=== PATIENT | female | born 1960 | race Caucasian/White ===

== ENCOUNTER 2019-04-01 14:04 | Emergency (ER) | payer BC, MEDICAID ==
[~2019-04-01] VITALS: Ht 149.9 cm; Wt 72.6 kg
--- NOTE | 2019-04-01 14:08 | NUR ---
Pt placed in bed 7
[2019-04-01 14:11] VITALS: BP_SYST 153
--- NOTE | 2019-04-01 14:13 | NUR ---
FAISAL Infante at bedside examining patient.
[2019-04-01] MEDS: cloNIDine HCL 0.1 MG TABLET PO ONE (14:31)
--- NOTE | 2019-04-01 14:33 | NUR ---
Medication for hypertension was given to pt, tolerated well
--- NOTE | 2019-04-01 14:53 | NUR ---
Patient given written and verbal discharge instructions and verbalizes understanding. ER MD discussed with patient the results and treatment provided. Patient in stable condition. ID arm band removed. Rx of valtrex, norco, prednisone and HCTZ given. Patient educated on pain management and to follow up with PMD. Pain Scale 3. Opportunity for questions provided and answered. Medication side effect fact sheet provided.
[2019-04-01 14:55] VITALS: BP_SYST 150
== END 2019-04-01 14:53 | disposition home or self-care (01) ==
LOC: SED 14:04
DX: B02.9 Zoster without complications (principal); I10 Essential (primary) hypertension; F32.9 Major depressive disorder, single episode, unspecified; Z90.49 Acquired absence of other specified parts of digestive tract; Z90.710 Acquired absence of both cervix and uterus
CPT/HCPCS: 99283

== ENCOUNTER 2021-05-30 09:47 | Emergency (ER) | payer MEDICAID ==
[~2021-05-30] VITALS: Ht 149.9 cm; Wt 68.0 kg
--- NOTE | 2021-05-30 10:00 | NUR ---
Patient to ER bed 4 to gown for evaluation. Side rails up. Report given to JOSE ARMANDO Cordon.
--- NOTE | 2021-05-30 10:05 | NUR ---
Pt AAO and ambulatory reporting ringing in the ears since Friday and numb lip. Pt reports that it will not resolve by itself. Pt denies any pain currently. Pt has no history of stroke/CVA.
[2021-05-30 10:10] VITALS: BP_SYST 179
--- NOTE | 2021-05-30 10:15 | NUR ---
Dr. Reyes to bedside to assess.
--- NOTE | 2021-05-30 10:20 | NUR ---
EKG done. Results to Dr. Reyes for interpretation.
--- NOTE | 2021-05-30 10:25 | NUR ---
Portable X-ray done at bedside.
--- NOTE | 2021-05-30 10:43 | NUR ---
Lab at bedside for blood draw.
--- NOTE | 2021-05-30 11:15 | NUR ---
Pt resting quietly in no distress awaiting disposition.
[2021-05-30 11:16] LABS: BASOPHILS % (AUTO) 0.5 % (0.0-2.0); EOSINOPHILS # (AUTO) 0.1 K/uL (0.0-0.4); EOSINOPHILS % (AUTO) 1.5 % (0.0-4.0); HEMATOCRIT 38.7 % (36-48); HEMOGLOBIN 13.4 g/dL (12.0-16.0); LYMPHOCYTES # (AUTO) 1.5 K/uL (1.0-5.5); MEAN CORPUSCULAR HEMOGLOBIN 30 pg (27-31); MEAN CORPUSCULAR HGB CONC 35 % (32-36); MEAN CORPUSCULAR VOLUME 85 fL (79.0-98.0); MONOCYTES # (AUTO) 0.4 K/uL (0.0-1.0); MONOCYTES % (AUTO) 5.5 % (1.7-9.3); NEUTROPHILS % (AUTO) 71.5 % (40.0-70.0); PLATELET COUNT (AUTO) 349 K/uL (130-430); RED BLOOD CELL COUNT(AUTO) 4.53 MIL/uL (4.2-6.2); RED CELL DISTRIBUTION WIDTH 12.5 % (9.0-15.0)
[2021-05-30 11:21] LABS: CALCIUM 9.6 mg/dL (8.4-11.0); CREATININE 0.65 mg/dL (0.55-1.30); POTASSIUM 3.7 mmol/L (3.5-5.1)
[2021-05-30 11:23] LABS: PROTHROMBIN TIME 10.1 SECS (9.5-12.5)
[2021-05-30 11:29] LABS: ALBUMIN 3.5 g/dL (3.4-4.8); TOTAL BILIRUBIN 0.2 mg/dL (0.0-1.0)
[2021-05-30] MEDS ORDERED: ALPR0.5T PO (11:52)
[2021-05-30] MEDS ORDERED: ALPRAZolam 0.25 MG TABLET PO ONE (12:00)
[2021-05-30 12:05] VITALS: BP_SYST 160
--- NOTE | 2021-05-30 12:05 | NUR ---
Patient given written and verbal discharge instructions and verbalizes understanding. Dr. Eric MALONE MD discussed with patient the results and treatment provided. Patient in stable condition. ID arm band removed. Rx of Xanax given. Patient educated on pain management and to follow up with PMD. Pain Scale 0/10. Opportunity for questions provided and answered. Medication side effect fact sheet provided.
== END 2021-05-30 10:43 | disposition home or self-care (01) ==
LOC: SED 09:47
DX: H93.19 Tinnitus, unspecified ear (principal); F32.9 Major depressive disorder, single episode, unspecified; Z79.899 Other long term (current) drug therapy
CPT/HCPCS: 36415; 70450-TC; 71045; 76376; 80053; 84484; 85025; 85610-TC; 85730-TC; 93005; 99285

== ENCOUNTER 2022-02-14 09:57 | Emergency (ER) | payer MEDICAID ==
[~2022-02-14] VITALS: Ht 149.9 cm; Wt 72.6 kg
[~2022-02-14 09:57] MED LIST: ALPR0.5T PO
[2022-02-14 10:00] VITALS: BP_SYST 147
[2022-02-14] MEDS ORDERED: ACETAMINOPHEN 500 MG TABLET PO ONE (13:00)
[2022-02-14 13:31] LABS: BILIRUBIN,URINE NEGATIVE (NEGATIVE); BLOOD, URINE NEGATIVE (NEGATIVE); COLOR,URINE YELLOW (YELLOW); GLUCOSE,URINE NEGATIVE (NEGATIVE); KETONES,URINE NEGATIVE (NEGATIVE); LEUKOCYTE ESTERASE ,URINE 3+ (NEGATIVE); NITRITE, URINE NEGATIVE (NEGATIVE); PH,URINE 5.5 (5.0-8.0); PROTEIN URINE NEGATIVE (NEGATIVE); UROBILINOGEN,URINE 0.2 (0.2-1.0)
[2022-02-14 13:32] LABS: CLARITY/URINE HAZY (CLEAR)
[2022-02-14 13:55] LABS: BASOPHILS % (AUTO) 0.6 % (0.0-2.0); EOSINOPHILS # (AUTO) 0.1 K/uL (0.0-0.4); EOSINOPHILS % (AUTO) 1.7 % (0.0-4.0); HEMATOCRIT 39.3 % (36-48); HEMOGLOBIN 13.7 g/dL (12.0-16.0); LYMPHOCYTES % (AUTO) 23.8 % (20.5-51.5); MEAN CORPUSCULAR HEMOGLOBIN 29 pg (27-31); MEAN CORPUSCULAR HGB CONC 35 % (32-36); MEAN CORPUSCULAR VOLUME 84 fL (79.0-98.0); MONOCYTES # (AUTO) 0.4 K/uL (0.0-1.0); MONOCYTES % (AUTO) 4.1 % (1.7-9.3); NEUTROPHILS % (AUTO) 69.8 % (40.0-70.0); PLATELET COUNT (AUTO) 342 K/uL (130-430); RED BLOOD CELL COUNT(AUTO) 4.68 MIL/uL (4.2-6.2); RED CELL DISTRIBUTION WIDTH 12.8 % (9.0-15.0); WHITE BLOOD COUNT (AUTO) 8.6 K/uL (4.8-10.8)
[2022-02-14 13:58] LABS: ANION GAP 8 (5-15); CALCIUM 9.6 mg/dL (8.4-11.0); CHLORIDE 99 mmol/L (98-107); GLUCOSE 98 mg/dL (70-99); POTASSIUM 3.9 mmol/L (3.5-5.1); SODIUM SERUM 137 mmol/L (136-145); UREA NITROGEN, BLOOD 14 mg/dL (8-21)
[2022-02-14 14:00] LABS: GFR AFRICAN AMERICAN 93 mL/min (>90)
[2022-02-14 14:04] LABS: BACTERIA,URINE MODERATE /HPF (None Seen); RBC,URINE NONE SEEN /HPF (0-3)
[2022-02-14 14:07] LABS: ALBUMIN 3.4 g/dL (3.4-4.8); ASPARTATE AMINOTRANSFERASE 14 U/L (10-37); TOTAL BILIRUBIN 0.3 mg/dL (0.0-1.0)
[2022-02-14 14:16] LABS: ALANINE AMINOTRANSFERASE 9 U/L (12-78)
[2022-02-14] MEDS ORDERED: SULFAMETHOXAZOLE/TRIMETHOPR DS 1 TABLET PO ONE (15:15)
[2022-02-14] MEDS ORDERED: CEFU250T85 PO (15:15)
[2022-02-14 15:24] VITALS: BP_SYST 147
== END 2022-02-14 15:25 | disposition home or self-care (01) ==
LOC: SED 09:57
DX: G44.209 Tension-type headache, unspecified, not intractable (principal); N39.0 Urinary tract infection, site not specified; Z79.899 Other long term (current) drug therapy
CPT/HCPCS: 36415; 70450-TC; 76376; 80053; 81000; 83605; 84484; 85025; 87086; 99284